=== PATIENT | female | born 1955 | race Caucasian/White ===

== ENCOUNTER 2023-05-19 18:36 | Outpatient (CLI) | payer MEDICARE ==
--- NOTE | 2023-05-20 13:28 | Ultrasound Report ---
PROCEDURE: Pelvic w/Transvaginal INDICATIONS: ABD PAIN TECHNIQUE: Transabdominal/transvaginal ultrasound of the pelvis was obtained. Endovaginal scanning wa s necessary due to incomplete visualization of the adnexal and endometrial structures by transabdomin al scanning. COMPARISON: None. FINDINGS: Uterine size: Uterus measures 5.9 x 1.3 x 2.8 cm, and is anteverted. Prominent left-sided nabothian cyst, 1 cm Myometrium: The myometrium is heterogenous Endometrium: The endometrium measures 2.1 mm in combined thickness. Right ovary: The right ovary measures 2.1 x 1.0 x 1.9 cm. Calculated ovarian volume 2.1 cc. Left ovary: The left ovary measures 1.3 x 0.6 x 1.3 cm. Calculated ovarian volume 0.6 cc. Other: No pathologic free abdominal or pelvic fluid. IMPRESSION: Unremarkable ultrasound of the pelvis Reviewed by: Derrick Brar MD on 05/20/2023 12:27 PM [facility] Approved by: Derrick Brar MD on 05/20/2023 12:27 PM [facility] Station ID: [id number]
== END 2023-05-19 18:37 | disposition home or self-care (01) ==
LOC: DI 18:36
PROVIDERS: ATTEND Physician Assistant Medical
DX: R10.9 Unspecified abdominal pain (principal)

== ENCOUNTER 2023-08-23 09:37 | Outpatient (CLI) | payer MEDICARE ==
[2023-08-23 16:56] LABS: THYROID STIMULATING HORMONE 1.37 uIU/mL (0.34-5.60)
== END 2023-08-23 09:38 | disposition home or self-care (01) ==
LOC: LAB.S 09:37
PROVIDERS: ATTEND Physician Assistant Medical
DX: E03.9 Hypothyroidism, unspecified (principal); Z13.9 Encounter for screening, unspecified
CPT/HCPCS: 36415; 84443

== ENCOUNTER 2023-08-26 08:08 | Outpatient (CLI) | payer MEDICARE ==
--- NOTE | 2023-08-26 12:25 | Ultrasound Report ---
PROCEDURE: Soft Tissue Head or Neck INDICATIONS: NODULE OF NECK TECHNIQUE: Real-time scanning was performed of the thyroid gland, with image documentation. COMPARISON: None FINDINGS: Right: Thyroid lobe measures 4.3 x 1.4 x 2.1 cm, and is homogeneous in echotexture. Left: Thyroid lobe measures 3.9 x 1.0 x 1.2 cm, and is homogenous in echotexture. Isthmus: 0.23 cm thick. Nodule number: One Location: Right superior Size: 1.7 x 0.9 x 1.2 cm. Composition: Solid. Echogenicity: Isoechoic. Shape: wider than tall (0 points). Margins: Smooth (0 points). Echogenic foci: None (0 points). Total points: 3 ACR TI-RADS category: 3 Nodule number: Two Location: Right mid Size: 0.8 x 0.8 x 1.0 cm. Composition: Solid. Echogenicity: Isoechoic. Shape: wider than tall (0 points). Margins: Irregular. Echogenic foci: None (0 points). Total points: 5 ACR TI-RADS category: 4 Nodule number: Three Location: Right inferior Size: 0.8 x 1.0 x 0.8 cm. Composition: Solid. Echogenicity: Hypoechoic. Shape: wider than tall (0 points). Margins: Irregular. Echogenic foci: Macrocalcification. Total points: 6 ACR TI-RADS category: 4 Nodule number: Four Location: Left mid Size: 1.0 x 0.5 x 0.7 cm. Composition: Solid. Echogenicity: Isoechoic. Shape: wider than tall (0 points). Margins: Smooth (0 points). Echogenic foci: None (0 points). Total points: 3 ACR TI-RADS category: 3 IMPRESSION: Multinodular goiter with several category 4 nodules all measuring less than 1.5 cm. Best practice jaclyn delines suggest follow-up schedule as below ACR TI-RADS definitions and recommendations: TI-RADS 1 (benign): 0 points. FNA not needed. TI-RADS 2 (not suspicious): 2 points. FNA not needed. TI-RADS 3 (mildly suspicious): 3 points. "FNA if 2.5 cm or larger, follow up if 1.5 cm or larger (at 1, 3, and 5 years). TI-RADS 4 (moderately suspicious): 4-6 points. "FNA if 1.5 cm or larger, follow up if 1 cm or larger (at 1, 2, 3, and 5 years). TI-RADS 5 (highly suspicious): 7 points or more. "FNA if 1 cm or larger, follow up if 0.5 cm or larger (every year for 5 years). Reviewed by: Derrick Brar MD on 08/26/2023 11:23 AM [facility] Approved by: Derrick Brar MD on 08/26/2023 11:23 AM [facility] Station ID: [id number]
== END 2023-08-26 08:09 | disposition home or self-care (01) ==
LOC: DI 08:08
PROVIDERS: ATTEND Physician Assistant Medical
DX: E04.2 Nontoxic multinodular goiter (principal)

== ENCOUNTER 2024-01-20 13:07 | Outpatient (CLI) | payer MEDICARE ==
[2024-01-20] MEDS ORDERED: iohexoL-300 100 ML VIAL ONE (13:24)
--- NOTE | 2024-01-20 15:22 | DEXA Report ---
PROCEDURE: Dexa Spine and/or Hip INDICATIONS: OSTEOPENIA TECHNIQUE: Dual energy x-ray absorptiometry (DXA) was performed on a Mobile Embrace System. Regions measur ed are the AP Spine, femoral neck, and if needed forearm. COMPARISON: None FINDINGS: Lumbar Spine: Bone Mineral Density: 0.890 g/cm/cm,T score: -2.4. Left Femoral Neck: Bone Mineral Density: 0.613 g/cm/cm, T score: -3.1. Left Hip: Bone Mineral Density: 0.669 g/cm/cm,T score: -2.7 (T score greater or equal to -1.0: NORMAL) (T score from -1.1 to -2.4: OSTEOPENIA) (T score less than or equal to -2.5 to: OSTEOPOROSIS) Impression: By WHO criteria, this patient has osteoporosis. Patients with diagnosis of osteoporosis or osteopenia should have regular bone mineral density assess ment. For those eligible for Medicare, routine testing is allowed once every 2 years. Testing frequ ency can be increased for patients who have rapidly progressing disease or for those who are receivin g medical therapy to restore bone mass. Reviewed by: Jesse Osman MD on 01/20/2024 3:21 PM PDT Approved by: Jesse Osman MD on 01/20/2024 3:21 PM PDT Station ID: [id number]
== END 2024-01-20 13:08 | disposition home or self-care (01) ==
LOC: DI 13:07
PROVIDERS: ATTEND Physician Assistant Medical
DX: M81.0 Age-related osteoporosis without current pathological fracture (principal); R22.1 Localized swelling, mass and lump, neck; E04.2 Nontoxic multinodular goiter
CPT/HCPCS: 36415; 70491; 77080; 82565; Q9967